=== PATIENT | female | born 1985 | race Caucasian/White ===

== ENCOUNTER 2022-09-19 22:50 | Emergency (ER) | payer OTHER ==
[2022-09-19 22:59] VITALS: BP 135/82; PULSE 58; RESP 18; TEMP 98.3; BMI 25.0
[2022-09-19] MEDS ORDERED: DIPHTH,PERTUSS(ACELL),TET 0.5 ML DISP.SYRIN IM ONE (23:57)
== END 2022-09-20 02:13 | disposition home or self-care (01) ==
LOC: JER 22:50
DX: S61.411A Laceration without foreign body of right hand, initial encounter (principal); W26.8XXA Contact with other sharp object(s), not elsewhere classified, initial encounter; Y93.G1 Activity, food preparation and clean up
CPT/HCPCS: 73130-TC-RT-FY; 90715; 99283-25

== ENCOUNTER 2024-03-20 21:57 | Emergency (ER) | payer OTHER ==
[2024-03-20 22:13] VITALS: BP 122/79; PULSE 89; RESP 19; TEMP 98.8; BMI 29.2
[2024-03-20] MEDS ORDERED: SULFAMETHOXAZOLE/TRIMETHOPRIM 800MG/160MG D.S. TABLET ONE (22:45)
[2024-03-20] MEDS ORDERED: IBUPROFEN 400 MG TABLET (FP) PO ONE (22:45)
[2024-03-20] MEDS ORDERED: ACETAMINOPHEN 500 MG TABLET (FP) ONE (22:46)
[2024-03-20] MEDS: IBUPROFEN 400 MG TABLET (FP) PO ONE (22:49)
[2024-03-20] MEDS: ACETAMINOPHEN 500 MG TABLET (FP) PO ONE (22:50)
[2024-03-20] MEDS: SULFAMETHOXAZOLE/TRIMETHOPRIM 800MG/160MG D.S. TABLET PO ONE (22:50)
== END 2024-03-21 00:07 | disposition home or self-care (01) ==
LOC: JER 21:57
PROC: 0U9MXZZ Drainage of Vulva, External Approach (ICD-10-PCS; principal; 2024-03-20)
DX: N75.0 Cyst of Bartholin's gland (principal); L03.317 Cellulitis of buttock
CPT/HCPCS: 87070; 87186; 87205; 99283-25